=== PATIENT | male | born 1965 | race Caucasian/White ===

== ENCOUNTER 2017-10-29 08:20 | Observation (INO) | payer OTHER ==
[~2017-10-29 08:20] MED LIST: CEFAZOLIN 1 GM INJ; CEFAZOLIN 2 GM/50 ML (PMX) 50 ML IVPB
[2017-10-29] MEDS ORDERED: FENTAnyl 50 MCG/ML VIAL ×2 (10:01→15:51)
[2017-10-29] MEDS ORDERED: METOCLOPRAMIDE 10 MG INJ (10:02)
[2017-10-29] MEDS ORDERED: MIDAZOLAM 1 MG/ML 2 ML INJ (10:02)
[2017-10-29] MEDS ORDERED: LIDOCAINE 2% (SDV) 5 ML INJ (10:54)
[2017-10-29] MEDS ORDERED: SUCCINYLCHOLINE CHLORIDE 100 MG/5 ML SYG IV (10:54)
[2017-10-29] MEDS ORDERED: ROCURONIUM 50 MG INJ (10:54)
[2017-10-29] MEDS ORDERED: PROPOFOL 20 ML (10:54)
[2017-10-29] MEDS ORDERED: SUGAMMADEX SODIUM 200 MG/2 ML VIAL IV (13:02)
[2017-10-29] MEDS ORDERED: MEPERIDINE 25 MG INJ IV (13:30)
[2017-10-29] MEDS ORDERED: HYDROmorphONE 1 MG/5 ML IV SYRINGE IV ×3 (13:30)
[2017-10-29] MEDS ORDERED: hydrALAzine 20 MG INJ IV (13:30)
[2017-10-29] MEDS ORDERED: KETOROLAC 30 MG INJ IV (13:30)
[2017-10-29] MEDS ORDERED: LABETALOL HCL 20MG INJ IV (13:30)
[2017-10-29] MEDS ORDERED: FENTAnyl 50 MCG/ML VIAL IV ×2 (13:30)
[2017-10-29] MEDS ORDERED: DIPHENHYDRAMINE 50 MG INJ IV (13:30)
[2017-10-29] MEDS ORDERED: ONDANSETRON 4 MG INJ IV (13:30)
[2017-10-29] MEDS ORDERED: IPRATROPIUM (NEB) 0.5 MG/2.5 ML AMP HHN (13:30)
[2017-10-29] MEDS ORDERED: LIDOCAINE 1% (MPF) 30 ML INJ (13:33)
[2017-10-29] MEDS ORDERED: POLYMYXIN/BACITRACIN 1L IRRIG (13:34)
[2017-10-29] MEDS ORDERED: BUPIVACAINE 0.25%/EPI (SDV) 30 ML INJ (13:34)
[2017-10-29] MEDS: LIDOCAINE 1% (MPF) 30 ML INJ INJ (13:45)
[2017-10-29] MEDS: BUPIVACAINE 0.5% 30 ML VIAL INJ (13:45)
[2017-10-29] MEDS: POLYMYXIN/BACITRACIN 1L IRRIG IRR (13:45)
[2017-10-29] MEDS ORDERED: ROPIVACAINE 0.5 % 30 ML VIAL (14:13)
[2017-10-29] MEDS ORDERED: BUPIVACAINE 0.5% (SDV) 30 ML INJ (14:15)
[2017-10-29] MEDS ORDERED: HYDROmorphONE 1 MG/ML SYG (17:52)
[2017-10-29] MEDS ORDERED: HYDROCODONE/APAP (5/325) TAB (17:53)
[2017-10-29] MEDS ORDERED: HYDROCODONE/APAP (5/325) TAB PO (18:00)
[2017-10-29] MEDS: HYDROmorphONE 1 MG/ML SYG IV (18:01)
[2017-10-29 19:28] LABS: ADD MAN DIFF? NO
[2017-10-29 19:32] LABS: WHITE BLOOD COUNT 19.4 10^3/ul (4.8-10.8)
[2017-10-29 19:32] LABS: BASOPHILS % 0.2 % (0.0-2.0); EOSINOPHILS % 0.1 % (0.0-7.0); HEMATOCRIT 45.2 % (42.0-52.0); HEMOGLOBIN 15.1 g/dl (14.0-18.0); LYMPHOCYTES # 0.6 10^3/ul (0.8-2.9); LYMPHOCYTES % 3.3 % (15.0-51.0); MEAN CORPUSCULAR HEMOGLOBIN 31.5 pg (29.0-33.0); MEAN CORPUSCULAR HGB CONC 33.4 g/dl (32.0-37.0); MEAN CORPUSCULAR VOLUME 94.4 fl (82.0-101.0); MEAN PLATELET VOLUME 9.7 fl (7.4-10.4); MONOCYTE # 0.7 10^3/ul (0.3-0.9); MONOCYTES % 3.6 % (0.0-11.0); NEUTROPHIL # 17.8 10^3/ul (1.6-7.5); PLATELET COUNT 323 10^3/UL (140-415); RED BLOOD COUNT 4.79 10^6/ul (4.70-6.10); RED CELL DISTRIBUTION WIDTH 12.8 % (11.5-14.5)
[2017-10-29 19:47] LABS: INR 1.08; PROTIME 14.1 Sec (11.9-14.9); PT RATIO 1.1
[2017-10-29 19:48] LABS: PARTIAL THROMBOPLASTIN TIME 32.4 Sec (25.0-35.0)
[2017-10-29 19:53] LABS: ANION GAP 12 (8-16); BLOOD UREA NITROGEN 13 mg/dl (7-20); CALCIUM 8.9 mg/dl (8.4-10.2); CARBON DIOXIDE 24 mmol/L (21-31); CHLORIDE 105 mmol/L (97-110); CHOL/HDL RATIO 4.4 RATIO; CHOLESTEROL 179 mg/dl (100-200); CREATINE KINASE 85 IU/L (23-200); CREATININE 0.71 mg/dl (0.61-1.24); GLUCOSE 119 mg/dl (70-220); HDL CHOLESTEROL 40 mg/dl (28-71); LDL CHOLESTEROL,CALCULATED 117 mg/dl; POTASSIUM 4.2 mmol/L (3.5-5.1); SODIUM 137 mmol/L (135-144); TRIGLYCERIDES 108 mg/dl (0-149)
[2017-10-29 19:57] LABS: HEMOGLOBIN A1C 5.8 % (0-5.9)
[2017-10-29 20:04] LABS: HOLD TRANSMISSIONS 1
[2017-10-29 20:05] LABS: CK INDEX 0.8; CK-MB 0.65 ng/ml (0.0-2.4); TROPONIN-I < 0.010 ng/ml (0.000-0.120)
[2017-10-30] MEDS: HYDROCODONE/APAP (5/325) TAB PO (02:30)
[2017-10-30] MEDS: morphine 4 MG/ML VIAL IV (11:09)
== END 2017-10-30 16:16 | disposition home or self-care (01) ==
LOC: SDS 08:20 → 6WM 22:03
PROVIDERS: Internal Medicine
DX: R53.1 Weakness (principal); M62.81 Muscle weakness (generalized); K40.30 Unilateral inguinal hernia, with obstruction, without gangrene, not specified as recurrent; M54.5 Low back pain
CPT/HCPCS: 49650; 70450; 71045; 72146; 72148; 80048; 80061; 82550; 82553; 82962; 83036; 84484; 85025; 85610; 85730; 92610; 93005; G0378